=== PATIENT | female | born 1950 | race Caucasian/White ===

== ENCOUNTER 2017-10-23 08:45 | Day surgery (SDC) | payer BC ==
[~2017-10-23 08:45] MED LIST: Lactated Ringers 1,000 ML IV SCH; Lidocaine 1%/Sod Bicarbonate in NS 8.4% 1 ML Syringe IV PRN; Sodium Chloride 0.9% 10 ML Syringe FLUSH PRN
--- NOTE | 2017-10-23 09:10 | PCM.PREANE ---
Preanesthetic Assessment - Anesthesia/Transfusion/Family Hx Anesthesia History: Prior Anesthesia Reaction (nausea) Family History of Anesthesia Reaction: No Transfusion History: No Prior Transfusion(s) - Review of Systems General: No Symptoms Pulmonary: No Symptoms Cardiovascular: Dyspnea on Exertion Gastrointestinal: No Symptoms Neurological: No Symptoms Other: Reports: Easy Bruising, Thyroid Problems (hypothyroid) - Physical Assessment NPO Status Date: 10/22/17 NPO Status Time: 00:00 Pulse: 66 O2 Sat by Pulse Oximetry: 96 Respiratory Rate: 16 Blood Pressure: 154/90 Temperature: 36.2 C Height: 1.65 m Weight: 100.244 kg ASA Class: 2 Mental Status: Alert & Oriented x3 Airway Class: Mallampati = 1 Dentition: Reports: Normal Dentition, Burnet(s) Thyro-Mental Finger Breadths: 3 Mouth Opening Finger Breadths: 3 ROM/Head Extension: Full Lungs: Clear to Auscultation, Normal Respiratory Effort Cardiovascular: Regular Rate, Regular Rhythm, No Murmurs - Allergies Allergies/Adverse Reactions: Allergies Allergy/AdvReac Type Severity Reaction Status Date / Time No Known Allergies Allergy Verified 10/22/17 15:25 - Blood Blood Available: No Product(s) Available: None - Anesthesia Plan Pre-Op Medication Ordered: None - Acknowledgements Anesthesia Type Planned: MAC Pt an Appropriate Candidate for the Planned Anesthesia: Yes Alternatives and Risks of Anesthesia Discussed w Pt/Guardian: Yes Pt/Guardian Understands and Agrees with Anesthesia Plan: Yes PreAnesthesia Questionnaire HEENT History: Reports: Hard of Hearing, Impaired Vision Other HEENT History: contacts, hearing loss, candidiasis, implacted cerumen Cardiovascular History: Reports: High Cholesterol, Hypertension, NV, SOB on Exertion, Other (See Below) Other Cardiovascular History: chest pressure Respiratory History: Reports: Bronchitis, Recurrent, PE Other Respiratory History: wheezing, hypoxia, cough Gastrointestinal History: Reports: Chronic Constipation Other Gastrointestinal History: hematochezia, gastric ulcer, nausea, increased liver enzymes, melena Genitourinary History: Reports: UTI, Recurrent Other Genitourinary History: hematuria, acute kidney injury, dysuria, lucosuria , hamturia, frequency [employer] History: Reports: , Other (See Below) Other OB/BYN History: bacterial vaginitis, gardnerella vaginosis Musculoskeletal History: Reports: Arthritis, Back Pain, Chronic Other Musculoskeletal History: low back pain, foot pain, laminectomy, muscle spas, broken ribs Psychiatric History: Reports: Depression Endocrine/Metabolic History: Reports: Hypothyroidism, Obesity/BMI 30+ Hematologic History: Reports: Anemia Immunologic History: Reports: None Oncologic (Cancer) History: Reports: None Dermatologic History: Reports: Other (See Below) Other Dermatologic History: actinic keratosis, seborrheic keratosis, ingorwn toenails, skin nodules - Infectious Disease History Infectious Disease History: Reports: Chicken Pox, Mumps - Past Surgical History Head Surgeries/Procedures: HEENT Surgical History: Reports: None Cardiovascular Surgical History: Reports: None Respiratory Surgical History: Reports: None GI Surgical History: Reports: Appendectomy, Bariatric Procedure, Colonoscopy, EGD Other GI Surgeries/Procedures: Lap band-2011 Female Surgical History: Reports: Hysterectomy, Oophorectomy, Tubal Ligation Endocrine Surgical History: Reports: Thyroidectomy Other Endocrine Surgeries/Procedures: parital thyroidectomy Neurological Surgical History: Reports: Laminectomy, Lumbar Spine Musculoskeletal Surgical History: Reports: Knee Replacement Other Musculoskeletal Surgeries/Procedures:: bilateral knee replacements Oncologic Surgical History: Reports: None Dermatological Surgical History: Reports: None - SUBSTANCE USE Smoking Status *Q: Never Smoker Tobacco Use Within Last Twelve Months: No Second Hand Smoke Exposure: Yes Days Per Week of Alcohol Use: 0 Number of Drinks Per Day: 0 Total Drinks Per Week: 0 Recreational Drug Use History: No - HOME MEDS Home Medications: Home Meds Levothyroxine [Synthroid] 100 mcg PO DAILY 09/26/16 [History] atorvaSTATin [Lipitor] 10 mg PO BEDTIME 09/26/16 [History] Calcium Carbonate [Calcium] 600 mg PO DAILY 10/22/17 [History] Cholecalciferol (Vitamin D3) [Vitamin D3] 5,000 unit PO DAILY 10/22/17 [History] Citalopram Hydrobromide [Celexa] 40 mg PO DAILY 10/22/17 [History] - CURRENT (IN HOUSE) MEDS Current Meds: Current Medications Lactated Ringer's (Ringers, Lactated) 1,000 mls @ 125 mls/hr IV ASDIRECTED ASHLEY Lidocaine/Sodium Bicarbonate (Buffered Lidocaine 1% In Ns 8.4%) 0.25 ml IV ONETIME PRN PRN Reason: Prior to IV Start Sodium Chloride (Saline Flush) 10 ml FLUSH ASDIRECTED PRN PRN Reason: Keep Vein Open
[2017-10-23] MEDS ORDERED: Propofol 200 MG/20 ML SDV ONE (10:06)
[2017-10-23] MEDS ORDERED: Lidocaine 1% 2 ML ONE ×2 (10:07→10:08)
--- NOTE | 2017-10-23 10:28 | PCM.OPNOTE ---
- General Post-Op/Procedure Note Date of Surgery/Procedure: 10/23/17 Operative Procedure(s): Colonoscopy with random rectal biopsy Findings: Sigmoid diverticulosis Pre Op Diagnosis: Change in bowel habits with painless bleeding per rectum Post-Op Diagnosis: Sigmoid diverticulosis Anesthesia Technique: MAC, Moderate Sedation Primary Surgeon: Fransisco Monson Pathology: Rectal biopsy EBL in mLs: 0 Complications: None Condition: Good Free Text/Narrative:: After adequate IV sedation and analgesia was obtained the patient was placed on her left side with monitoring. Perianal inspection and digital rectal examination were performed next and were unremarkable for hemorrhoids or fissures. A lubricated colonoscope was then inserted into the rectum to the cecum without difficulty. The bowel preparation was adequate. The cecum, right colon, Transverse and descending colons were endoscopically normal and there were no inflammatory changes throughout this part of the colon. The sigmoid had a few scattered diverticuli but were otherwise unremarkable. The rectum in both views was unremarkable. Given her history I took a biopsy for histologic evaluation from the rectum. Photographs were taken for the patient and for the medical record. Air was removed as I said procedure which she tolerated well. There were no complications.
--- NOTE | 2017-10-23 10:29 | PCM48HPAN ---
Post Anesthesia Note - EVALUATION WITHIN 48HRS OF ANESTHETIC Vital Signs in Normal Range: Yes Patient Participated in Evaluation: Yes Respiratory Function Stable: Yes Airway Patent: Yes Cardiovascular Function Stable: Yes Hydration Status Stable: Yes Pain Control Satisfactory: Yes Nausea and Vomiting Control Satisfactory: Yes Mental Status Recovered: Yes - COMMENTS/OBSERVATIONS Free Text/Narrative:: rests quiety, VSS no c/o
[2017-10-23 10:39] VITALS: BP 136/75
== END 2017-10-23 11:07 | disposition home or self-care (01) ==
LOC: JD.SDS 08:45
PROVIDERS: ATTEND Surgery
DX: K57.30 Diverticulosis of large intestine without perforation or abscess without bleeding (principal); R19.7 Diarrhea, unspecified; J39.2 Other diseases of pharynx; E66.9 Obesity, unspecified; Z68.39 Body mass index [BMI] 39.0-39.9, adult; Z98.51 Tubal ligation status; Z79.899 Other long term (current) drug therapy; Z86.711 Personal history of pulmonary embolism; Z90.49 Acquired absence of other specified parts of digestive tract; Z90.710 Acquired absence of both cervix and uterus; Z90.722 Acquired absence of ovaries, bilateral; Z96.653 Presence of artificial knee joint, bilateral; Z98.890 Other specified postprocedural states
CPT/HCPCS: 45380; J7120; 00810; J2704